=== PATIENT | female | born 1955 | race Caucasian/White ===

== ENCOUNTER 2023-12-30 05:05 | Observation (INO) ==
--- NOTE | 2023-11-06 11:14 | PAT Medication Instructions ---
Medication Instructions Date of Service November 06, 2023 Home Medications alendronate 70 mg tablet 70 mg PO WK cholecalciferol (vitamin D3) 125 mcg (5,000 unit) tablet (Vitamin D3) 125 mcg PO QAM losartan 100 mg tablet 100 mg PO QAM multivitamin 1 tab PO QAM naproxen sodium 220 mg tablet (Aleve) 220 mg PO BID PRN ASK your surgeon for instructions naproxen sodium 220 mg tablet (Aleve) 220 mg PO BID PRN DO NOT take the morning of surgery alendronate 70 mg tablet 70 mg PO WK cholecalciferol (vitamin D3) 125 mcg (5,000 unit) tablet (Vitamin D3) 125 mcg PO QAM losartan 100 mg tablet 100 mg PO QAM multivitamin 1 tab PO QAM Other Notes NOTHING TO EAT OR DRINK AFTER MIDNIGHT. If you have any questions please call us at [phone] or [phone] or [phone] or [phone]
--- NOTE | 2023-11-12 13:51 | Anesthesiology Consultation ---
Date of Service November 12, 2023 Assessment & Plan (1) Encounter for pre-operative examination: - Infectious disease screening: Per assessment on 11/12/23: No known recent infectious disease contacts or current infectious disease symptoms. - Outpatient joint pathway: Per surgeon paperwork, plan for possible outpatient joint program if possible. Patient seen at [facility] 11/13/23. Patient is an acceptable candidate to proceed as planned outpatient joint pathway pending perioperative course. Surgeon's office arranging post-op home management. - Patient acceptable risk for surgery pending surgeon-ordered PCP preop evaluation (Benito GALLEGOS, appt 11/26). Chart Review Chart Review: Patient seen in Pre Admission Testing Teaching & Discussion Pre-Anesthesia Teaching/Discussion Notes: Instructed NPO after midnight before surgery,except medications with 15 cc of water. Medication instructions provided according to the [facility] guidelines. History Surgery Operation Date: 01/02/24 09:25 Proposed Procedures p OP: Right Anterior Total Hip Replacement - Roverto Gonzalez MD Height/Weight Height: 5 ft 7 in Weight: 116.4 kg Allergies Allergy/AdvReac Type Severity Reaction Status Date / Time amoxicillin Allergy Severe Hives Verified 10/31/23 15:10 Sulfa (Sulfonamide Allergy Severe Hives Verified 10/31/23 15:10 Antibiotics) Medications Home Medications Medication Instructions Recorded Confirmed Last Taken alendronate 70 mg tablet 70 mg PO WK 10/31/23 10/31/23 Unknown cholecalciferol (vitamin D3) 125 125 mcg PO QAM 10/31/23 10/31/23 Unknown mcg (5,000 unit) tablet (Vitamin D3) losartan 100 mg tablet 100 mg PO QAM 10/31/23 10/31/23 Unknown multivitamin 1 tab PO QAM 10/31/23 10/31/23 Unknown naproxen sodium 220 mg tablet 220 mg PO BID PRN Pain 10/31/23 10/31/23 Unknown (Aleve) Past Medical History Medical History History of COVID-19 05/2022: vomiting, dizziness, cough, aches, fatigue > symptoms resolved Hx of ovarian cancer s/p OPAL-BSO 03/2023, no chemo or XRT Follows with Dr. Hernandez/[facility] Monitoring CA 125 levels Hypertension Morbid obesity Osteoporosis Exercise / Class Metabolic Activity II 4-5 Yardwork/Stairs/Walk up hill Past Family History Family History Other No family history of adverse response to anesthesia Past Surgical History Surgical History History of cataract surgery bilateral History of colonoscopy History of tonsillectomy (1958) S/P OPAL-BSO (03/2023) Past Anesthesia History No Hx of Anesthesia Complications and No Family Hx of Anesthesia Complications History of PONV No Hx of PONV and No Hx of Motion Sickness Social History Smoking Status: Never smoker Do You Dip or Chew Tobacco: No Hx Alcohol Use: Yes Alcohol type: wine and hard liquor alcohol intake frequency: holidays/special occasions only Hx Substance Use: No substance use type: does not use Review of Systems Patient denies chest pain, shortness of breath, dyspnea on exertion, fever, chills, cough, wheezing, palpitations. Physical Exam Vital Signs BP 114/72 P 78 TEMP 98.2 SP02 96%RA RESP 16 Physical Full cervical extension range of motion. Full TMJ range of motion. TMD 3.5 finger breaths Mallampati Score 1 Dentition: + missing sides/molars, + several caps (sides/molars) Lungs: clear throughout to auscultation Cardiac: regular rate and rhythm, no murmurs noted Spine: normal Carotid arteries: negative bruit Extremities: no LE edema Lab Results Anesthesia Preop Results Results Anesthesia Widget: WBC 7.80 K/ul (4.8-10.8) 11/12/23 Hgb 14.1 g/dl (12.0-16.0) 11/12/23 Hct 41.5 % (37.0-47.0) 11/12/23 Plt 175 K/uL (130-400) 11/12/23 Na 141 mmol/L (136-145) 11/12/23 K 3.8 mmol/L (3.5-5.1) 11/12/23 Cl 107 mmol/L (98-107) 11/12/23 CO2 26 mmol/L (21-32) 11/12/23 BUN 24 mg/dl (6-23) H 11/12/23 Creat 0.65 mg/dl (0.6-1.2) 11/12/23 Glucose Level 85 mg/dl (70-99(Fasting)) 11/12/23 PT 11.0 Seconds (9.0-12.0) 11/12/23 PTT 28 Seconds (21-31) 11/12/23 INR 1.0 (0.9-1.1) 11/12/23 Urine Color Yellow 11/12/23 Urine Appearance Cloudy (Clear) A 11/12/23 Urine pH 5.0 (4.5-7.5) 11/12/23 Urine Specific [place] 1.025 (1.000-1.030) 11/12/23 Urine Protein Negative (Negative) 11/12/23 Urine Glucose (UA) Negative (Negative) 11/12/23 Urine Ketones 1+ (Negative) H 11/12/23 Urine Blood Negative (Negative) 11/12/23 Urine Nitrite Negative (Negative) 11/12/23 Urine Bilirubin Negative (Negative) 11/12/23 Urine Urobilinogen Negative (Negative) 11/12/23 Urine Leukocyte Esterase Negative (Negative) 11/12/23 Urine WBC (Auto) 0-5 /hpf (0-5) 11/12/23 Urine RBC (Auto) 0-2 /hpf (0-2) 11/12/23 Urine Hyaline Casts (Auto) 3-5 /lpf (0-2) H 11/12/23 Urine Epithelial Cells (Auto) 3-5 /hpf (0-2) H 11/12/23 Urine Bacteria (Auto) 1+ (None Seen) H 11/12/23 Blood Type O Positive 11/12/23 Antibody Screen NEGATIVE 11/12/23 Testing Laboratory Results Urine culture (11/12/23): probable skin alpa Electrocardiogram Date: 11/12/23 SB with sinus arrhythmia at 56bpm. Minimal voltage criteria for LVH, may be normal variant (Sammy product). Chest X-Ray Date: 11/12/23 FINDINGS: No lines and tubes are seen. The cardiomediastinal silhouette is normal. The lungs are clear. No evidence of pleural effusion or pneumothorax. IMPRESSION: No acute chest disease.
--- NOTE | 2023-12-25 08:16 | History & Physical Report ---
Date of Service December 25, 2023 Assessment & Plan (1) Degenerative joint disease of right hip: Plan: Right total hip replacement possible same-day surgery Home health will be with [facility] home health (2) Morbid obesity: History of Present Illness Chief Complaint: Right hip pain Primary Care Provider: NO PCP Patient is a morbidly obese 67-year-old female with greater than 6-year history of bilateral hip pain right greater than left. The pain began as a result of an accident. Her pain is now a 10 out of 10 and is severe. It is associated with marked decrease in range of motion marked limitation in standing and walking tolerance. She has severe problems with all activities of daily living. She has tried and failed multiple types of injections. She requires a cane for all activities of daily living. She has radiographic evidence of severe end-stage arthritis of the hip. Allergies Allergy/AdvReac Type Severity Reaction Status Date / Time amoxicillin Allergy Severe Hives Verified 10/31/23 15:10 Sulfa (Sulfonamide Allergy Severe Hives Verified 10/31/23 15:10 Antibiotics) Home Medications Medication Instructions Recorded Confirmed Type alendronate 70 mg tablet 70 mg PO WK 10/31/23 10/31/23 History cholecalciferol (vitamin D3) 125 125 mcg PO QAM 10/31/23 10/31/23 History mcg (5,000 unit) tablet (Vitamin D3) losartan 100 mg tablet 100 mg PO QAM 10/31/23 10/31/23 History multivitamin 1 tab PO QAM 10/31/23 10/31/23 History naproxen sodium 220 mg tablet 220 mg PO BID PRN Pain 10/31/23 10/31/23 History (Aleve) Past Med/Surg History Problem List (Updated 12/25/23 @ 08:16 by Roverto Gonzalez MD) Degenerative joint disease of right hip Medical History Morbid obesity Osteoporosis History of COVID-19 05/2022: vomiting, dizziness, cough, aches, fatigue > symptoms resolved Hx of ovarian cancer s/p OPAL-BSO 03/2023, no chemo or XRT Follows with Dr. Hernandez/[facility] Monitoring CA 125 levels Hypertension Surgical History History of cataract surgery bilateral History of tonsillectomy (1958) History of colonoscopy S/P OPAL-BSO (03/2023) Family History Other No family history of adverse response to anesthesia Social History Smoking Status: Never smoker Second Hand Exposure: No; Do You Dip or Chew Tobacco: No; Tobacco Cessation Education Requested by Patient: No Hx Alcohol Use: Yes Alcohol type: wine and hard liquor Hx Substance Use: No Preferred Language: Arabic Communication Ability: Effective 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 HEENT: NCAT, EOMI, PERRLA Neck: Negative bruits Heart: Regular rate and rhythm no murmurs Lungs: Breath sounds clear and present in all page Abdomen: Obese soft nontender bowel sounds positive Extremities: Patient has extremely large and wide hips the right hip is about 5 mm long passive range of motion is 10 to 80 degrees flexion of -25 degrees internal rotation all which reproduces groin pain. Neurological and vascular: Intact Results & Data Results & Data Vital Signs (Past 12 Hours) Blood pressure 146/88 Pulse 96
[2023-12-30] MEDS: traMADol HCL 50 MG TABLET PO SCH (05:46)
[2023-12-30] MEDS: METOCLOPRAMIDE HCL 10 MG TABLET PO SCH (05:46)
[2023-12-30] MEDS: dexAMETHasone**PF** 10 MG/ML VIAL IV SCH (05:46)
[2023-12-30] MEDS: LR 60ML/HR IV SCH (05:46)
[2023-12-30] MEDS: ACETAMINOPHEN 500 MG TAB PO SCH (05:46)
[2023-12-30] MEDS: GABAPENTIN 300 MG CAP PO SCH (05:46)
[2023-12-30] MEDS: FAMOTIDINE 20 MG TAB PO SCH (05:46)
[2023-12-30] MEDS: LR 500ML BOLUS, THEN 15ML/HR IV SCH (06:04)
[2023-12-30] MEDS ORDERED: MEPIVACAINE HCL 1.5% 30 ML VIAL ONE (06:20)
--- NOTE | 2023-12-30 06:30 | History & Physical Bridge Note ---
Date of Service December 30, 2023 History & Physical Bridge Note I have examined the patient, reviewed the History & Physical and in the interval since the performance of the History & Physical I have noted the following changes of clinical significance: no changes noted
[2023-12-30] MEDS ORDERED: ONDANSETRON INJ 2 MG/ML 2 ML VIAL IV PRN ×2 (06:33→17:39)
[2023-12-30] MEDS ORDERED: ePHEDrine sulfate 50 MG/ML AMP IV PRN (06:33)
[2023-12-30] MEDS ORDERED: ATROPINE SULFATE 0.1 MG/ML 10ML SYR IV PRN (06:33)
[2023-12-30] MEDS ORDERED: fentaNYL citrate PF 100 MCG/2 ML VIAL ONE ×2 (06:49→08:14)
[2023-12-30] MEDS ORDERED: MIDAZOLAM HCL 1 MG/ML 2ML VIAL ONE (06:49)
[2023-12-30] MEDS: TRANEXAMIC ACID 1,000 MG **IV Pre-op IV SCH (06:50)
[2023-12-30] MEDS ORDERED: PROPOFOL IV EMULSION 10 MG/ML 20 ML VIAL IV ONE ×5 (06:54→09:44)
[2023-12-30] MEDS: ceFAZolin 3000MG 3,000 MG/72.5 ML BAG IV SCH (07:13)
[2023-12-30] MEDS ORDERED: KETAMINE HCL 10MG/ML SYR ONE (07:38)
[2023-12-30] MEDS: ROPIV 0.5% 246mg, Ketorolac 30mg, EPINEPHrine 0.5mg in NSS INFIL SCH (07:57)
[2023-12-30] MEDS: ORTHO JOINT ANESTHETIC ONE (07:58)
[2023-12-30] MEDS ORDERED: ONDANSETRON INJ 2 MG/ML 2 ML VIAL ONE ×2 (08:05→09:43)
[2023-12-30] MEDS ORDERED: KETOROLAC 30 MG/ML VIAL ONE (08:36)
--- NOTE | 2023-12-30 08:44 | Post Operative Brief Note ---
Immediate Post Op Note Date of Surgery December 30, 2023 Pre & Post Diagnosis Operation Date: 12/30/23 07:15 Pre-Op Diagnosis: Right Hip Degenerative Joint Disease Post-Op Diagnosis: Right Hip Degenerative Joint Disease I identified the patient and participated in the time-out.: Yes Procedure Operation Date: 12/30/23 07:15 Actual Procedures p Right Total Hip Replacement - Anterior Approach, Cemented(Right) - Roverto Gonzalez MD Surgeon Roverto Gonzalez MD [employer] Zhang Carranza PA-C Estimated Blood Loss 100 Findings Consistent with Post-Op Diagnosis Drains Hemovac Drain
[2023-12-30] MEDS: TRANEXAMIC ACID 1,000 MG **IV Intra-op IV SCH (08:45)
--- NOTE | 2023-12-30 08:52 | Operative Report ---
Post Operative Report Pre & Post Diagnosis Operation Date: 12/30/23 07:15 Pre-Op Diagnosis: Right Hip Degenerative Joint Disease Morbid obesity BMI 40 Post-Op Diagnosis: Right Hip Degenerative Joint Disease Morbid obesity BMI 40 I identified the patient and participated in the time-out.: Yes Procedure Operation Date: 12/30/23 07:15 Actual Procedures p Right Total Hip Replacement - Anterior Approach, Cemented(Right) - Roverto Gonzalez MD Surgeon Roverto Gonzalez MD Deputy Chief Executive Zhang Carranza PA-C Estimated Blood Loss 100 Findings Consistent with Post-Op Diagnosis severe degenerative changes with chronically inflamed synovial lining large periarticular osteophytes of the loss of the weightbearing cartilage. Note: Patient had a morbidly obese body habitus with a very large subcutaneous fat layer. This added an element of increased difficulty and increased time for the surgical procedure by more than 25% Specimens femoral head and bone and cartilage fragments Indications components used: [employer] cemented hip system: Acetabulum size 50 with 25 mm dome screw and Oreo Oxinium liner. Femur size 4 high offset with +428 mm Oxinium inner dual mobility head Description of Procedure following satisfactory spinal anesthesia the patient was supine on the operating room table. The right leg was placed in the traction device in the left leg in the well-leg vincent. Positioning was confirmed with fluoroscopy. Positioning was difficult again because of the patient's large body habitus and visualization was difficult. The leg was then prepared with ChloraPrep and draped sterilely. A surgical timeout was performed. An anterior approach was performed in the interval between the sartorius and tensor muscles. There was a very large subcutaneous fat layer which did slow the approach and make it difficult. Hemostasis was obtained. The circumflex femoral vessels were identified and coagulated. An anterior capsulotomy was performed exposing the arthritic femoral neck and head. Fluoroscopy was used to confirm femoral neck resection level open femoral neck was resected and the severely arthritic femoral head was removed. The acetabular self-retaining retractor was placed. Acetabular preparation was completed with excision of labral capsular and calcified tissue. The acetabulum was reamed under direct vision. The severity of the arthritis did obscure all landmarks. The 50 shell was impacted into a bleeding bed in a position of 35 to 40 degrees of abduction and 25 degrees of anteversion confirmed with fluoroscopy. A dome screw was placed followed by the Oxinium liner. Local anesthetic was placed and the wound was irrigated. The femur was placed into a position of external rotation extension and adduction. Femoral canal was identified and was prepared up to a size 4. A trial reduction with a high offset neck and a +4 inner dual mobility head was performed. Fluoroscopy showed very good orientation of the components, good fit and fill of the proximal canal, and temple of leg length and offset at the level of the lesser trochanter. The hip was dislocated. The trial component was removed. Following placement of a cement plug and irrigation third-generation cement technique using Latasha ZB cement was used to cement the size 4 high offset stem. When the cemented hardened the hip was again reduced with a trial +4 head and showed similar findings. The hip was dislocated 1 final time. The trial head removed. Following irrigation the final head complex of the same size was placed the hip was reduced and fluoroscopy showed similar findings. The wound was irrigated with 500 cc of experience irrigation. A drain was placed deep. The tensor fascia was closed with a running suture of 0 STRATAFIX. The subcutaneous fat layer was closed in multiple layers with 0 strata fix and 2-0 Vicryl. The skin was closed with surgical lisa. A negative pressure wound dressing was applied. The patient was returned to her bed in stable condition. Note: Zhang REID was present and assisted throughout due to the complicated nature of this case. He help with preparation and set up, he first assisted throughout. He assisted with hemostasis and exposure throughout the procedure. He also closed the fascial subcutaneous and skin layers and applied the postop dressing. I attest to the content of the Intraoperative Record and any orders documented therein. Any exceptions are noted below.
[2023-12-30] MEDS: fentaNYL citrate PF 100 MCG/2 ML VIAL IV PRN (09:17)
--- NOTE | 2023-12-30 10:02 | Anesthesiology Progress Note ---
Date of Service December 30, 2023 Anesthesia Post Procedure Vital Signs Vital Signs: Temp Pulse Pulse Resp BP Pulse Ox O2 Del Method 12/30/23 09:55 66 15 140/81 97 Room Air 12/30/23 09:45 97.7 F 59 L 21 153/90 H 98 Room Air 12/30/23 09:35 83 21 146/89 H 100 Room Air 12/30/23 09:25 66 21 136/78 99 Room Air 12/30/23 09:15 80 17 119/90 97 Room Air 12/30/23 09:08 97.3 F L 82 12 141/91 H 97 Room Air 12/30/23 05:35 98.1 F 73 20 177/89 H 98 Room Air Pain Intensity Back: Pain Intensity: 4 Transfer of Care Handoff Completed per policy Notes Mental Status: alert / awake / arousable and participated in evaluation Patient Amnestic to Procedure: Yes Nausea / Vomiting: adequately controlled Pain: adequately controlled Airway Patency, RR, SpO2: stable & adequate BP & HR: stable & adequate Hydration State: stable & adequate Neuraxial Anesthesia: was administered and sensory block is resolving Anesthetic Complications: no major complications apparent and Pt Satisfied with anesthetic care
--- NOTE | 2023-12-30 10:39 | Fluoroscopy Report ---
FL hip RT 1V CLINICAL HISTORY: RIGHT ANTERIOR HIP TECHNIQUE: 2 views were obtained with the C-arm in the OR with the above procedure. Total fluoroscopy time was 11.4 seconds. Radiation dose was 2.0 mGy. Comparison: None available at the time of this dictation. FINDINGS/IMPRESSION: Intraoperative images were obtained of open reduction internal fixation of the r ight hip. Please correlate with intraoperative fluoroscopy and operative report. ACT 112: Negative or not required by law. Electronically signed by: Louis Kern M.D. 12/30/2023 10:38 AM
[2023-12-30] MEDS: traMADol HCL 50 MG TABLET PO PRN (11:29)
[2023-12-30] MEDS: ceFAZolin 2000MG 2,000 MG/15 ML SYR IV ONE (15:02)
[2023-12-30] MEDS ORDERED: METOCLOPRAMIDE HCL INJ 5 MG/ML 2 ML VIAL IV PRN (17:39)
[2023-12-30] MEDS ORDERED: MAGNESIUM HYDROXIDE SUSP 30 ML UDC PO PRN (17:39)
[2023-12-30] MEDS ORDERED: bisacodyL 10 MG SUPP PR PRN (17:39)
[2023-12-30] MEDS ORDERED: NALOXONE HCL 0.4 MG/1 ML VIAL/CARP IV PRN (17:39)
[2023-12-30] MEDS ORDERED: diphenhydrAMINE 50 MG/ML VIAL IV PRN (17:39)
[2023-12-30] MEDS: SODIUM CHLORIDE 0.9% 1,000 ML IV SCH (18:07)
[2023-12-30] MEDS: ASPIRIN 81 MG ECTAB PO SCH (21:24)
[2023-12-30] MEDS: SENNA 8.6 MG TAB PO SCH (21:24)
[2023-12-30] MEDS: DOCUSATE SODIUM 100 MG CAP PO SCH (21:24)
[2023-12-30] MEDS: ceFAZolin 2000MG 2,000 MG/15 ML SYR IV SCH (21:25)
[2023-12-30] MEDS: ACETAMINOPHEN 500 MG TAB PO PRN (21:27)
[2023-12-31 02:58] VITALS: O2SAT 95
--- NOTE | 2023-12-31 07:49 | Orthopedic Progress Note ---
Date of Service December 31, 2023 Assessment & Plan (1) Degenerative joint disease of right hip: Plan: patient is doing extremely well this morning. Likely she had some quadriceps weakness due to the periarticular Ortho injection around the acetabulum this has resolved as would be expected she is neurologically and vascularly intact. She is ambulatory independently. She is felt to be staying stable for discharge to home where she will be followed by [facility]. We will DC her Hemovac as her drain is only put out 100 cc since the time of surgery. Follow-up in the office will be in 2 weeks time. Admission and Anticipated Discharge Date Admission Date: December 30, 2023 Subjective Postoperative day #1 right total hip replacement Patient is awake and alert and oriented. She offers no complaints. She was actually able to ambulate to the restroom multiple times late last evening and this morning and no longer feels the effects of quadriceps buckling or weakness. She denies lightheadedness states her pain is controlled and is anxious to go home. Physical Exam Physical Exam: Patient is examined at the bedside. Her hip pain is located. Thigh and calf are very soft and nontender. She is neurologically and vascularly intact. Good quad function this morning. Hemovac drain 100 cc total since surgery Results & Data Vital Signs (Past 12 Hours) Vital Signs Temp Pulse Resp BP Pulse Ox O2 Del Method 12/31/23 02:57 36.4 C L 91 H 14 132/76 95 Room Air 12/30/23 23:23 36.6 C 94 H 14 102/67 96 Room Air
[2023-12-31 07:52] LABS: Basophils # (auto) 0.01 K/uL (0.00-0.20); Basophils % (auto) 0.1 %; Hematocrit (blood only) 29.8 % (37.0-47.0); Immature Granulocytes # (auto) 0.06 K/uL (0.01-0.20); Immature Granulocytes % (auto) 0.6 %; Lymphocytes # (auto) 1.57 K/uL (1.20-3.40); Lymphocytes % (auto) 15.8 %; Mean Corpuscular Hemoglobin 28.2 pg (25.0-34.0); Mean Corpuscular Hgb Conc 33.6 g/dL (32.0-36.0); Mean Corpuscular Volume 83.9 fL (80.0-100.0); Mean Platelet Volume 13.7 fL (9.4-12.4); Monocytes # (auto) 0.87 K/uL (0.11-0.59); Monocytes % (auto) 8.8 %; Neutrophils # (auto) 7.42 K/uL (1.40-6.50); Neutrophils % (auto) 74.7 %; Platelet Count 149 K/uL (130-400); RDW Coefficient of Variation 14.6 % (11.5-14.5); RDW Standard Deviation 44.7 fL (36.4-46.3); Red Blood Count 3.55 M/uL (4.20-5.40); White Blood Count 9.93 K/ul (4.8-10.8)
[2023-12-31 08:12] LABS: Calcium 8.6 mg/dl (8.6-10.3); Creatinine Clr Calc Pharmacy 88.2 ml/min; Est GFR (African American) 87.9 ml/min; Est GFR (Non-African American) 75.8 ml/min; Potassium 4.5 mmol/L (3.5-5.1)
[2023-12-31] MEDS: MULTIVITAMIN TAB PO SCH (08:21)
[2023-12-31] MEDS: CHOLECALCIFEROL 125 MCG (5,000 UNITS) TAB PO SCH (08:21)
[2023-12-31] MEDS: LOSARTAN POTASSIUM 50 MG TAB PO SCH (08:22)
[2023-12-31 08:24] VITALS: PULSE 77; RESP 16; TEMP 97.9
[2023-12-31] MEDS ORDERED: MULTIVITAMIN TAB PO SCH (09:00)
[2023-12-31 10:10] VITALS: BP 132/76
== END 2023-12-31 11:13 | disposition home health service (06) ==
LOC: 3W 05:05 → ASU 05:05